=== PATIENT | male | born 1945 | race Caucasian/White ===

== ENCOUNTER 2019-07-09 06:10 | Day surgery (SDC) | payer OTHER ==
[~2019-07-09] VITALS: Ht 182.9 cm; Wt 97.3 kg
[~2019-07-09 06:10] MED LIST: ASPIRIN EC81 MG; ISOSORBIDE MONO30 MG PO; LIPITOR40 MG PO; METOPROLOL TART25 MG PO; NITROSTAT0.4 MG SL
--- NOTE | 2019-07-09 08:19 | NUR ---
07/09/19 0819 Sophy Interiano 0754 PT ARRIVED IN PACU SLEEPY LAYING ON L SIDE. PASSING FLATUS. 0812 PT REACTIVE TO VERBAL/TACTILE STIMULI. ABD SOFT.
--- NOTE | 2019-07-09 09:39 | OR ---
[facility] [address], [place] [address] Signed DATE OF OPERATION: 07/09/2019 SURGEON: Mica Gunderson MD PREOPERATIVE DIAGNOSES: 1. Personal history of colonic polyps. 2. Diverticulosis. POSTOPERATIVE DIAGNOSES: 1. Cpepfrq-uz-ydljotfj sigmoid diverticulosis. 2. Indurated prostate gland. PROCEDURE: Colonoscopy without biopsy. ESTIMATED BLOOD LOSS: None. INDICATIONS: Clarence is a 73-year-old gentleman, asked to see me for a followup colonoscopy. He has had several colonoscopies over the years starting around age 51. He said he has had previous colonic polyps removed. His last colonoscopy came in 2013 with the [facility] in [place], [place]. He is known to have diverticulosis. He has no lower GI complaints currently. No family history of colon cancer or polyps. In the office, I met with Clarence and I gave him a pamphlet on colonoscopy. We reviewed the nature of the test along with its risks including, but not limited to gas, bloating, crampy abdominal pain, bleeding, perforation requiring surgery, and missed diagnosis. We also discussed the need for IV conscious sedation. He had expressed understanding and wished to proceed. PROCEDURE NOTE: Clarence was taken into our endoscopy suite and placed in the left lateral decubitus position. He was given a total of 5 mg of Versed and 100 mcg of fentanyl to cover the case. A digital rectal exam was performed and his prostate gland is slightly enlarged, it is moderately indurated. The right is a little more prominent than the left. The adult colonoscope was introduced and advanced under direct visualization of the camera. He did require some extra sedation and some abdominal compression as we came through the proximal transverse colon and down into the cecum itself. His prep was quite good. We could easily see the appendiceal orifice, the akutan's foot, and the ileocecal valve. Pictures were taken for photodocumentation. The scope was slowly withdrawn. We saw no Electronically Signed By: MICA GUNDERSON MD 07/09/19 0939 PATIENT NAME: CLARENCE HUDDLESTON OPERATIVE REPORT DATE OF : 47 REPORT #: [id number] PHYSICIAN: MICA GUNDERSON MD PCP: ANNE MADDEN NP REPORT IS CONFIDENTIAL AND NOT TO BE RELEASED WITHOUT AUTHORIZATION [facility] [address], [place] [address] Signed polyps throughout the entire colon or rectum. He does have sigmoid diverticulosis. They are moderate in size, vxxxebu-jc-mwnhjvco in number, and scattered about. Upon retroflexion of the scope, there was no additional pathology noted above the anal canal. After this, the gas was suctioned out and the colonoscope removed. Clarence tolerated the procedure quite well. RECOMMENDATIONS: Clarence can follow up in 5 years for repeat colonoscopy due to his personal history of colonic polyps. He can follow along with his prostate exam with his primary care provider. MD JESSICA Cadet/IBRAHIMAL /[id number] cc: MD Scarlet Cadet MD Copies: MICA GUNDERSON MD ~ Electronically Signed By: MICA GUNDERSON MD 07/09/19 0939 PATIENT NAME: CLARENCE HUDDLESTON OPERATIVE REPORT DATE OF : 47 REPORT #: [id number] PHYSICIAN: MICA GUNDERSON MD PCP: ANNE MADDEN NP REPORT IS CONFIDENTIAL AND NOT TO BE RELEASED WITHOUT AUTHORIZATION
== END 2019-07-09 08:40 | disposition home or self-care (01) ==
LOC: OPS 06:10 → DS 06:10 → OPS 06:45
PROVIDERS: Colon & Rectal Surgery
PROC: 0DJD8ZZ Inspection of Lower Intestinal Tract, Via Natural or Artificial Opening Endoscopic (ICD-10-PCS; principal; 2019-07-09 06:45)
DX: Z12.11 Encounter for screening for malignant neoplasm of colon (principal); K57.30 Diverticulosis of large intestine without perforation or abscess without bleeding; N42.89 Other specified disorders of prostate; Z88.0 Allergy status to penicillin; Z86.010 Personal history of colon polyps; Z88.2 Allergy status to sulfonamides; Z98.890 Other specified postprocedural states; Z79.82 Long term (current) use of aspirin; Z79.899 Other long term (current) drug therapy
CPT/HCPCS: 99153; G0500; J2250; J3010; J7120

== ENCOUNTER 2019-09-12 12:30 | Emergency (ER) | payer OTHER, MEDICARE ==
[~2019-09-12] VITALS: Ht 182.9 cm; Wt 97.3 kg
--- OUTSIDE RECORDS SUMMARY | ~2019-09-12 | XMS | Clinical Summary ---
Demographics + + + | Address | [address] | | | [place] [address] | + + + | Home Phone | | + + + | Preferred Language | Unknown | + + + | Marital Status | Single | + + + | Gnosticism Affiliation | Unknown | + + + | Race | Unknown | + + + | Ethnic Group | Unknown | + + + Author + + + | Author | [facility] (Historical as of | | | 07-06-19) | + + + | Organization | [facility] (Historical as of | | | 07-06-19) | + + + | Address | Unknown | + + + | Phone | Unavailable | + + + Support + + +---------+ + | Name | Relationship | Address | Phone | + + +---------+ + | Timothy Jara | ECON | Unknown | | + + +---------+ + | Leslie Baez | ECON | Unknown | | + + +---------+ + Care Team Providers + +------+ + | Care [place] Name | Role | Phone | + +------+ + | Scarlet Croft MD | PP | | + +------+ + Allergies + + + + + + | Active Allergy | Reactions | Severity | Noted | Comments | | | | | Date | | + + + + + + | Penicillins | Other (See Comments) | Medium | 07/12/20 | Unknown, was told | | | | | 16 | he was allergic to | | | | | | it | + + + + + + | Sulfa Antibiotics | Other (See Comments) | Medium | 07/15/20 | unknown | | | | | 16 | | + + + + + + Current Medications + + +--------+---------+------+------+-------+ | Prescription | Sig. | Disp. | Refills | Star | End | Statu | | | | | | t | Date | s | | | | | | Date | | | + + +--------+---------+------+------+-------+ | aspirin 81 MG EC | Take 81 mg by mouth | | | | | Activ | | tablet | daily with | | | | | e | | | breakfast. | | | | | | + + +--------+---------+------+------+-------+ | sildenafil | Take 1 tablet by | 10 | 1 | 07/0 | 04/2 | Activ | | (VIAGRA) 50 MG | mouth as needed for | tablet | | 5/20 | 420 | e | | tablet | Erectile | | | 17 | 26 | | | | Dysfunction. | | | | | | + + +--------+---------+------+------+-------+ | pravastatin | Take 1 tablet by | 90 | 3 | 03/0 | 04/2 | Activ | | (PRAVACHOL) 40 MG | mouth nightly. | tablet | | / | 20 | e | | tablet | | | | 18 | 26 | | + + +--------+---------+------+------+-------+ Active Problems + + + | Problem | Noted Date | + + + | Dyslipidemia | 12/12/2016 | + + + | CAD (coronary artery disease), [place] coronary artery | 07/20/2016 | + + + | S/P CABG x 4 | 07/20/2016 | + + + Resolved Problems + + + + | Problem | Noted | Resolved | | | Date | Date | + + + + | Acute respiratory insufficiency, postoperative | 07/23/20 | | | | 16 | 7 | + + + + Family History + + +------+ + | Medical History | Relation | Name | Comments | + + +------+ + | Heart attack | Father | | | + + +------+ + | Diabetes type II | Mother | | | + + +------+ + + +------+ + + | Relation | Name | Status | Comments | + +------+ + + | Father | | | | + +------+ + + | Mother | | | | + +------+ + + Social History + +-------+ +--------+------+ | Tobacco Use | Types | Packs/Day | Years | Date | | | | | Used | | + +-------+ +--------+------+ | Never Smoker | | | | | + +-------+ +--------+------+ + +---+---+---+ | Smokeless Tobacco: | | | | | Never Used | | | | + +---+---+---+ + + +---------+ + | Alcohol Use | Drinks/We | oz/Week | Comments | | | ek | | | + + +---------+ + | Yes | 0 | 0.0 | occasional | | | Standard | | | | | drinks or | | | | | | | | | | equivalen | | | | | t | | | + + +---------+ + + + + | Sex Assigned at | Date Recorded | | | | + + + | Not on file | | + + + Last Filed Vital Signs + + + + | Vital Sign | Reading | Time Taken | + + + + | Blood Pressure | 104/50 | 03/13/2019 8:56 AM PDT | + + + + | Pulse | 97 | 03/13/2019 8:56 AM PDT | + + + + | Temperature | 36.4 C (97.6 F) | 08/17/2017 3:27 PM PDT | + + + + | Respiratory Rate | 18 | 08/17/2017 5:19 PM PDT | + + + + | Oxygen Saturation | 97% | 03/13/2019 8:56 AM PDT | + + + + | Inhaled Oxygen | - | - | | Concentration | | | + + + + | Weight | 97.7 kg (215 lb 6.4 | 03/13/2019 8:56 AM PDT | | | oz) | | + + + + | Height | 182.9 cm (6') | 03/13/2019 8:56 AM PDT | + + + + | Body Mass Index | 29.21 | 03/13/2019 8:56 AM PDT | + + + + Plan of Treatment +--------+---------+ + + + | Date | Type | Specialty | Care Team | Description | +--------+---------+ + + + | 03/18/ | Office | | Stephanie Tavarez, | | | 2019 | Visit | | MD Meka Garcia | | | | | | [address], | | | | | | [place] [id number] | | | | | | [phone] | | | | | | | | +--------+---------+ + + + + + + + + | Health Maintenance | Due Date | Last Done | Comments | + + + + + | Vaccine: | | | | | Dtap/Tdap/Td (1 - | 6 | | | | Tdap) | | | | + + + + + | Colon Cancer | | | | | Screening | 7 | | | | (Colonoscopy) | | | | + + + + + | Vaccine: Zoster (1 | | | | | of 2) | 7 | | | + + + + + | Vaccine: | | | | | Pneumococcal 65+ | 2 | | | | Low/Medium Risk (1 | | | | | of 2 - PCV13) | | | | + + + + + | Vaccine: Influenza | | | | | (#1) | 9 | | | + + + + + Implants + +------+--------+ +--------+--------+--------+ | Implanted | Type | Area | Manufacture | Device | Expira | Model | | | | | r | | tion | / | | | | | | Identi | Date | Serial | | | | | | fier | | / Lot | + +------+--------+ +--------+--------+--------+ | Plate Strnl Acute [id number] | | N/A: | ACUTE | | | [id number] | | Sn/AImplanted: Qty: 3 on | | Sternu | INNOVATIONS | | | / | | 07/20/2016 by Rohit Jo, | | m | LLC - AINN | | | | | MD | | | | | | | + +------+--------+ +--------+--------+--------+ Results Not on filefrom Last 3 Months Insurance + +--------+ +------+ + + | Payer | Benefi | Subscriber | Type | Phone | Address | | | t Plan | ID | | | | | | / | | | | | | | Group | | | | | + +--------+ +------+ + + | MEDICARE | MEDICA | [id number] | | | [address] | | | RE | | | | [place] [phone] | | | IP-OP | | | | | + +--------+ +------+ + + | COMMERCIAL OTHER | STATE | [id number] | | | | | | FARM | 7 | | | | | | MEDICA | | | | | | | L | | | | | | | INSURA | | | | | | | NCE | | | | | + +--------+ +------+ + + | VET[place]ANS | VETERA | [id number] | | [phone] FEE SERVICES [id number] | | ADMINISTRATION | [place] | | | [phone] | | | [address] | | | | [address] | | | [place] | | | | [phone] | | | ON | | | | | + +--------+ +------+ + + + +--------+ +--------+ + + | Guarantor Name | Accoun | Relation to | Date | Phone | Billing Address | | | t Type | Patient | of | | | | | | | | | | + +--------+ +--------+ + + | CLARENCE HUDDLESTON | Person | Self [birth year] Home: | [address] | | | al/Fam | | 1946 | +- | [place] | | | [place] | | | [phone] | [phone] | + +--------+ +--------+ + + | CLARENCE HUDDLESTON | Vetera | Self | [birth year] | Home: | [address] | | | ns | | 1946 | +- | [place] | | | Admini | | | [address] | [phone] | | | strati | | | | | | | on | | | | | + +--------+ +--------+ + +"
--- OUTSIDE RECORDS SUMMARY | ~2019-09-12 | XMS | Clinical Summary ---
Demographics + + + | Address | [address] | | | [place] [address] | + + + | Home Phone | | + + + | Preferred Language | Unknown | + + + | Marital Status | Unknown | + + + | Congregational Affiliation | Unknown | + + + | Race | Unknown | + + + | Ethnic Group | Unknown | + + + Author + + + | Author | [facility] | | | and [place] | + + + | Organization | [facility] | | | and [place] | + + + | Address | [...] Team Providers + +------+ + | Care Director Global Sales Name | Role | Phone | + +------+ + | Scarlet Croft MD | PCP | | + +------+ + Allergies + [...] | + + + + + + Medications + + + +---------+------+------+-------+ | Medication | Sig | Dispensed | Refills | Star | End | Statu | | | | | | t | Date | s | | | | | | Date | | | + + + +---------+------+------+-------+ | aspirin 81 MG EC | Take 81 mg by mouth | | 0 | 07/21 | | Activ | | tablet | daily with | | | 3/20 | | e | | | breakfast. | | | 16 | | | + + + +---------+------+------+-------+ | sildenafil | Take 1 tablet by | 10 | 1 | 07/0 | 04/2 | Activ | | (VIAGRA) 50 MG | mouth as needed for | tablet | | /20 | /20 | e | | tablet | Erectile | | | 17 | 26 | | | | Dysfunction. | | | | | | + + + +---------+------+------+-------+ | pravastatin | Take 1 tablet by | 90 | 3 | 03/0 | 04/2 | Activ | | (PRAVACHOL) 40 MG | mouth nightly. | tablet | | 06/08 | /20 | e | | tablet | | | | 18 | 26 | | + + + +---------+------+------+-------+ Active Problems + + + | Problem | Noted Date | + + + | Dyslipidemia | 12/12/2016 | + + + | CAD (coronary artery disease), [place] coronary artery | 07/20/2016 | + + + | S/P CABG x 4 | 07/20/2016 | + + + Family History + + +------+ + | Medical History | Relation | Name | Comments | + + +------+ + | Heart attack | Father | | | + + +------+ + | Diabetes, NIDDM | Mother | | | + + +------+ + + +------+ + + | Relation | Name | Status | Comments | + +------+ + + | Father | | | | + +------+ + + | Father [...] | | | + +-------+ +--------+------+ + + + | Sex Assigned at | Date Recorded | | | | + + + | Not on file | | + + + + + + + | Job Start Date | Occupation | Industry | + + + + | Not on file | Not on file | Not on file | + + + + + + + + | Travel History | Travel Start | Travel End | + + + + + + | No recent travel history available. | + + Last Filed Vital Signs + + + + | Vital Sign | Reading | Time Taken | + + + + | Blood Pressure | 104/50 | 03/13/2019857 PDT | + + + + | Pulse | 97 | 03/13/2019857 PDT | + + + + | Temperature | 36.4 C (97.6 F) | 08/17/20171733 PDT | + + + + | Respiratory Rate | 18 | 08/17/20171733 PDT | + + + + | Oxygen Saturation | - | - | + + + + | Inhaled Oxygen | - | - | | Concentration | | | + + + + | Weight | 97.7 kg (215 lb 6.4 | 03/13/2019857 PDT | | | oz) | | + + + + | Height | 182.9 cm (6') | 03/13/2019857 PDT | + + + + | Body Mass Index | 29.21 | 03/13/2019857 PDT | + + + + Plan of Treatment +--------+---------+ + + + | Date | Type | Specialty | Care Team | Description | +--------+---------+ + + + | 03/18/ | Office | Cardiology | Amna Tavarezsridevi, | | | 2019 | Visit | | MD [address] | | | | | | [facility] [place] | | | | | | [address] | | | | | | | | +--------+---------+ + + + + + + + + | Health Maintenance | Due Date | Last Done | Comments | + + + + + | Hepatitis C | | | | | Screening | 7 | | | + + + + + | Vaccine: | | | | | Dtap/Tdap/Td (1 - | 6 | | | | Tdap) | | | | + + + + + | Colorectal Cancer | | | | | Screening [...] | + + + + + | Adult Annual | | | | | Wellness Visit | 9 | | | + + + + + | Statin Therapy | | | | | (optimal intensity) | 9 | | | + + + + + | Vaccine: Influenza | | | | | (#1) | 9 | | | + + + + + Implants + +------+--------+ +--------+--------+--------+ | Implanted | Type | Area | Manufacture | Device | Shelf | Model | | | | | r | | Expira | / | | | | | | Identi | tion | Serial | | | | | | fier | Date | / Lot | + +------+--------+ +--------+--------+--------+ | Plate Strnl Acute [id number] - | | N/A: | ACUTE | | | [id number] | | Sn/AImplanted: Qty: 3 on | | Sternu | INNOVATIONS | | | 4 / / | | 07/20/2016 by Rohit Jo, | | m | DUSTIN - SHRAVAN | | | | | MD | | | | | | | + +------+--------+ +--------+--------+--------+ Results Not on filefrom Last 3 Months Advance Directives Patient has advance care planning documents on file. For more information, please contact:[facility] [place] [address]"
[2019-09-12] MEDS ORDERED: PRAVASTATIN SOD40 MG PO (12:44)
[2019-09-12] MEDS ORDERED: METOPROLOL SUCC25 MG PO (12:45)
--- NOTE | 2019-09-13 06:41 | EKG ---
[facility] [address] [place], [place] [address] Signed Normal sinus rhythm Inferior infarct , age undetermined Abnormal ECG No previous ECGs available Confirmed by HAILEY CARTER MD ([id number]) on 09/13/2019 6:40:50 AM Electronically Signed By: HAILEY CARTER MD 09/13/19 0641 PATIENT NAME: TAPAN HUDDLESTON Electrocardiogram DATE OF : 47 PHYSICIAN: HAILEY CARTER MD REPORT #: [id number] REPORT IS CONFIDENTIAL AND NOT TO BE RELEASED WITHOUT AUTHORIZATION
== END 2019-09-12 14:26 | disposition home or self-care (01) ==
LOC: ED 12:30
DX: R07.9 Chest pain, unspecified (principal); Z88.0 Allergy status to penicillin; Z88.2 Allergy status to sulfonamides; Z79.899 Other long term (current) drug therapy
CPT/HCPCS: 71046; 80053; 83735; 84484; 85025; 93005; 93010; 99285-25

== ENCOUNTER 2021-08-21 15:49 | Emergency (ER) | payer MEDICARE ==
[~2021-08-21] VITALS: Ht 182.9 cm; Wt 90.0 kg
[~2021-08-21 15:49] MED LIST changes: +METOPROLOL SUCC25 MG PO; +PRAVASTATIN SOD40 MG PO
== END 2021-08-21 19:27 | disposition home or self-care (01) ==
LOC: ED 15:49
DX: U07.1 COVID-19 (principal); Z88.0 Allergy status to penicillin; Z88.2 Allergy status to sulfonamides; Z79.82 Long term (current) use of aspirin; Z79.899 Other long term (current) drug therapy
CPT/HCPCS: 71045; 80053; 85025; 96374; 99284-25; C9803; J2405; J7030; M0243; Q0244

== ENCOUNTER 2023-01-01 19:41 | Emergency (ER) | payer MEDICARE ==
[~2023-01-01] VITALS: Ht 182.9 cm; Wt 101.1 kg
[2023-01-01] MEDS ORDERED: CARBATROL100 MG PO (21:05)
== END 2023-01-01 21:18 | disposition home or self-care (01) ==
LOC: ED 19:41
DX: G50.0 Trigeminal neuralgia (principal); Z88.0 Allergy status to penicillin; Z88.2 Allergy status to sulfonamides; Z79.899 Other long term (current) drug therapy; Z79.82 Long term (current) use of aspirin
CPT/HCPCS: 36415; 70450; 80053; 85025; 99284-25

== ENCOUNTER 2024-12-03 08:16 | Day surgery (SDC) | payer OTHER ==
[~2024-12-03] VITALS: Ht 182.9 cm; Wt 93.4 kg
[~2024-12-03 08:16] MED LIST changes: +CARBATROL100 MG PO; +IBLOOD GLUCOSE TEST STRIP 1 EA TEST VI PRN; +LACTATED RINGER'S 1,000 ML IV SCH; +LIDOCAINE HCL 1% 5 ML SDV INJ ONE; +MIDAZOLAM HCL 5 MG/5 ML VIAL IV PRN; +fentaNYL citrate 100 MCG/2 ML VIAL IV PRN
[2024-12-03 08:34] VITALS: BP 131/66
[2024-12-03] MEDS ORDERED: MIDAZOLAM HCL 5 MG/5 ML VIAL ONE (08:53)
[2024-12-03] MEDS ORDERED: fentaNYL citrate 100 MCG/2 ML VIAL ONE (08:54)
--- NOTE | 2024-12-03 09:39 | NUR ---
12/03/24 0939 Elaine Gresham PATIENT IS BREATHING SHALLOW. HE IS ENCOURAGED TO DEEP BREATHE AND HE DOES WELL WITH FOLLOWING INSTRUCTIONS. OXYGEN SATURATION REMAINS 100% ON 3L VIA NC. OXYGEN IS REDUCED TO 1L VIA NC.
[2024-12-03 10:16] VITALS: BP 116/70
--- NOTE | 2024-12-04 07:24 | OR ---
[facility] [address] [place], [place] [address] Signed DATE OF OPERATION: 12/03/2024 SURGEON: Mica Shah MD PREOPERATIVE DIAGNOSES: 1. Personal history of multiple colonic polyps. 2. Diverticulosis. POSTOPERATIVE DIAGNOSIS: Unremarkable colonoscopy. PROCEDURE: Colonoscopy without biopsies. ESTIMATED BLOOD LOSS: None. INDICATIONS: Nathaniel is a 78-year-old gentleman asked to see me for followup colonoscopy. I helped Nathaniel in 2019 at the age of 73. He had diverticulosis. He did well with 5 mg of Versed and 100 mcg of fentanyl. Before that he had three or four colonoscopies through the [facility] in [place], [place]. He has had colonic polyps removed and he has been on the five year rotation. He gives no family history of colon cancer or polyps. He tells me he has no lower GI complaints. He said he walks several days a week to stay in shape. In the office I had given Nathaniel a pamphlet on colonoscopy. We had reviewed the nature of the test. There is risk including, but not limited to gas bloating, crampy abdominal pain, bleeding, perforation requiring surgery, and missed diagnosis. We also reviewed the written instructions for the bowel prep line by line. It is the same bowel prep I gave him before. We also looked through his medications. We had him hold his aspirin 3 days prior to the procedure. He has always done well with Versed and fentanyl. He understands an adult person has to take him home afterwards. He thought his son would be here, but it sounds like maybe his brother is here today. He had expressed understanding and wished to proceed. DESCRIPTION OF PROCEDURE: Nathaniel was taken into our endoscopy suite, placed in the left lateral decubitus position. He was given a total of 5 mg of Versed and 100 mcg of fentanyl. A digital rectal exam was performed. This was unremarkable. No external hemorrhoids. Good sphincter tone. No masses. The adult colonoscope was introduced and advanced all the way around into the cecum under direct visualization of camera without difficulty. It took just a Electronically Signed By: MICA SHAH MD 12/04/24 0724 PATIENT NAME: TAPAN HUDDLESTON OPERATIVE REPORT DATE OF : 47 REPORT #: [id number] PHYSICIAN: MICA SHAH MD PCP: WALTER MCNEILL MD REPORT IS CONFIDENTIAL AND NOT TO BE RELEASED WITHOUT AUTHORIZATION [facility] [address] [place], [place] [address] Signed little abdominal compression to get the scope into the cecum. As always, his prep was quite good. We could easily see the appendiceal orifice and ileocecal valve. The scope then slowly withdrawn. We took several pictures throughout for photodocumentation. On this occasion, we did not see any diverticula. There were no polyps. Upon retroflexion of scope we did not see any pathology above the anal canal. After this, the gas was suctioned out, colonoscope removed. He tolerated the procedure quite well. RECOMMENDATIONS: Nathaniel can return every five years for repeat colonoscopy. When he gets within 10 years of the end of his life, then he can discontinue colonoscopies. Mica Shah MD ALB/MODL /[id number] cc: Patient's Chart [place], [place] Mica Shah MD Copies: MCIA SHAH MD ~ Electronically Signed By: MICA SHAH MD 12/04/24 0724 PATIENT NAME: TAPAN HUDDLESTON OPERATIVE REPORT DATE OF : 47 REPORT #: [id number] PHYSICIAN: MICA SHAH MD PCP: WALTER MCNEILL MD REPORT IS CONFIDENTIAL AND NOT TO BE RELEASED WITHOUT AUTHORIZATION
== END 2024-12-03 10:20 | disposition home or self-care (01) ==
LOC: DS 08:16
PROVIDERS: ATTEND Colon & Rectal Surgery
PROC: 0DJD8ZZ Inspection of Lower Intestinal Tract, Via Natural or Artificial Opening Endoscopic (ICD-10-PCS; principal; 2024-12-03 09:45)
DX: Z12.11 Encounter for screening for malignant neoplasm of colon (principal); I12.9 Hypertensive chronic kidney disease with stage 1 through stage 4 chronic kidney disease, or unspecified chronic kidney disease; N18.30 Chronic kidney disease, stage 3 unspecified; E78.5 Hyperlipidemia, unspecified; I25.10 Atherosclerotic heart disease of native coronary artery without angina pectoris; Z86.0100 Personal history of colon polyps, unspecified; Z87.19 Personal history of other diseases of the digestive system; Z79.82 Long term (current) use of aspirin; Z79.899 Other long term (current) drug therapy; Z88.2 Allergy status to sulfonamides; Z88.0 Allergy status to penicillin
CPT/HCPCS: 99153; G0500; J2250; J3010; J7121